=== PATIENT | male | born 1955 | race Hispanic/Latino ===

== ENCOUNTER 2018-07-26 14:59 | Outpatient (CLI) | payer BC ==
[~2018-07-26 14:59] MED LIST: Iopamidol 370 76% 100 ML VIAL ONE
--- NOTE | 2018-07-26 15:51 | CT ---
CT ANGIOGRAM CHEST WITH AND WITHOUT CONTRAST: HISTORY: I71.2, thoracic aortic aneurysm without rupture. COMPARISON: None. TECHNIQUE: CT angiogram of the chest was performed prior to and after the intravenous administration of contrast , and 3D rendering was provided. FINDINGS: On the noncontrast portion of the examination, there is no intramural hematoma. No aneurysmal dilata tion of the aorta. No pericardial effusion. Aortic size is as follows: Valve: 2.6 cm. Aortic sinus: 3.6 cm. Sinotubular junction: 3.1 cm. Mid ascending thoracic aorta: 3.3 cm. Mid transverse aorta: 2.7 cm. Proximal descending thoracic aorta: 2.6 cm. Thoracic aorta at the diaphragmatic hiatus: 2.3 cm. No dissection. No penetrating atherosclerotic ulcer. There is no proximal segmental pulmonary arterial filling defect. No mediastinal adenopathy. The th yroid is unremarkable. The upper abdomen is unremarkable for acute process. Vpe-nddan-ma-characterize hypodensity, posterio r cortex, superior pole, left kidney. Adrenal glands are unremarkable. The clavicles are intact. The sternum and manubrium are intact. No displaced rib fracture. No thoracic spine compression deformity. The lungs are clear. There is an accessory right minor fissure. This gives the appearance of a grou nd glass nodule on the coronal image, although it is linear in nature and is reflective of pleura. N o suspicious pulmonary nodule. No pneumothorax. No effusion or consolidation. IMPRESSION: Normal examination of the aorta. Normal CT angiogram of the chest. POS: CET
== END 2018-07-26 15:00 | disposition home or self-care (01) ==
LOC: BICCT 14:59
PROVIDERS: ATTEND Internal Medicine Cardiovascular Disease
DX: I71.2 Thoracic aortic aneurysm, without rupture (principal)
CPT/HCPCS: 71275; 82565; Q9967